=== PATIENT | male | born 1955 | race Caucasian/White ===

== ENCOUNTER 2017-12-24 10:45 | Emergency (ER) | payer OTHER ==
[~2017-12-24] VITALS: Ht 167.6 cm; Wt 97.5 kg
--- OUTSIDE RECORDS SUMMARY | ~2017-12-24 | XMS | Clinical Summary ---
Demographics + + + | Address | [address] | | | [place] [address] | + + + | Home Phone | | + + + | Preferred Language | Unknown | + + + | Marital Status | | + + + | Gnosticist Affiliation | Unknown | + + + | Race | Unknown | + + + | Ethnic Group | Unknown | + + + Author + + + | Author | [facility] | | | and [place] | + + + | Organization | [facility] | | | and [place] | + + + | Address | Unknown | + + + | Phone | Unavailable | + + + Support + + + + + | Name | Relationship | Address | Phone | + + + + + | Ammy Vivar | ECON | [address] | | | | | [place], [place] | | | | | [address] | | + + + + + | Ernesto Vivar | ECON | [address] | | | | | [place] | | | | | [address] | | + + + + + Care Team Providers + +------+ + | Care Facility Maintenance Helper Name | Role | Phone | + +------+ + | Goldy Jiang PA-C PP | Unavailable | + +------+ + Allergies + + + + + + | Active Allergy | Reactions | Severity | Noted | Comments | | | | | Date | | + + + + + + | Hydrocodone | Nausea Only | Low | 02/17/ | | | | | | 14 | | + + + + + + | Lisinopril | | | | Pt does not | | | | | | remember what the | | | | | | reaction was | + + + + + + | Tetracycline Hcl | Nausea Only | Medium | | | + + + + + + Current Medications + + +--------+---------+------+------+-------+ | Prescription | Sig. | Disp. | Refills | Star | End | Statu | | | | | | t | Date | s | | | | | | Date | | | + + +--------+---------+------+------+-------+ | nitroglycerin | One tablet under | | | 07/0 | | Activ | | (NITROSTAT) 0.4 mg | tongue as needed for | | | 5/20 | | e | | SL tablet | chest pain. May | | | 12 | | | | | repeat every 5 | | | | | | | | minutes up to 3 | | | | | | | | times. If no relief | | | | | | | | after 3rd tablet, | | | | | | | | call 911. | | | | | | + + +--------+---------+------+------+-------+ | acetaminophen | 1-2 tablets by mouth | | | 07/0 | | Activ | | (TYLENOL) 500 mg | as needed | | | 5/20 | | e | | tablet | | | | 12 | | | + + +--------+---------+------+------+-------+ | [place]-3 Fatty | Take 1,000 mg by | | | 07/0 | | Activ | | Acids (FISH OIL) | mouth 3 times daily. | | | 5/20 | | e | | 1200 MG CAPS | | | | 12 | | | + + +--------+---------+------+------+-------+ | metoprolol | Take 1 tablet by | 30 | 6 | 06/2 | | Activ | | succinate | mouth every evening. | tablet | | /20 | | e | | (TOPROL-XL) 25 mg 24 | Along with 50 mg, | | | 14 | | | | hr tablet | for total of 75 mg | | | | | | | | daily in the | | | | | | | | evening. | | | | | | + + +--------+---------+------+------+-------+ | | Take 1 tablet by | 30 | 6 | 02/23 | | Activ | | hydrochlorothiazide | mouth Daily. | tablet | | 12/13 | | e | | 25 mg tablet | | | | 14 | | | + + +--------+---------+------+------+-------+ | ezetimibe (ZETIA) | Take 1 tablet by | 30 | 5 | 12/1 | | Activ | | 10 mg tablet | mouth Daily. | tablet | | /20 | | e | | | | | | 15 | | | + + +--------+---------+------+------+-------+ | atorvaSTATin | Take 1 tablet by | 90 | 3 | 01/24 | | Activ | | (LIPITOR) 40 mg | mouth nightly. | tablet | | 12/13 | | e | | tablet | | | | 16 | | | + + +--------+---------+------+------+-------+ | aspirin 81 MG | Take 1 tablet by | 90 | 3 | 01/25 | | Activ | | tablet | mouth Daily. | tablet | | 09/14 | | e | | | | | | 16 | | | + + +--------+---------+------+------+-------+ Active Problems + + + | Problem | Noted Date | + + + | Pacemaker reprogramming/check do not remove | 06/15/2015 | + + + | Pacemaker-St Durga- 02/17/14, SUW | 02/17/2014 | + + + + + | Overview: Formatting of this note may be different from the | | original. MODEL NAME MODEL# SERIAL# DATE IMPLANTED GENERATOR St | | Durga Assurity [id number] 02/17/[address] Durga | | 2087TC/52 [id number]/[id number] 02/17/[address] Durga 2087TC/46 [id number] | | 02/17/14 Indication: Sinoatrial Node Dysfunction - Bradycardia | | | |Indication: Sinoatrial Node Dysfunction - Bradycardia | + + + +---+ | OSTEOPOROSIS | | + +---+ | OTHER ABNORMAL GLUCOSE | | + +---+ | GASTROESOPHAGEAL REFLUX DISEASE | | + +---+ | Hyperlipidemia | | + +---+ | Hypertension | | + +---+ | Myocardial infarction acute (HCC) | | + +---+ | CAD | | + +---+ + + | Overview: Exercise Myoview stress test on 09/26/06 which | | revealed a normal ECG. Normal perfusion imaging study with no | | definite evidence of reversible ischemia. LVEF by SPECT was 59%. | | Echocardiogram on 07/28/07 revealed normal LV size. Mid to distal | | septum anterior wall and apex are akinetic. Overall mild to | | moderate segmental LV dysfunction with LVEF estimated at 40-45%/ | | Left atrial size is mildly dilated. Status post non-Q wave | | myocardial infarction, status post PTCA and stents of the | | proximal left anterior descending on 07/27/2007 at [facility]. | | Persantine Myoview stress test on 03/02/08 revealed a negative ECG. | | Occasional PVC. Exercise tolerance is average for age. Abnormal | | perfusion imaging study with a small size, mild severity fixed | | defect of the anteroseptal region. This suggests only a very | | small area of the myocardial scar of the septal area. A normal LV | | size, wall thickness and motion. Preserved LV systolic function. | | LVEF by SPECT of 57%. Echocardiogram 01/14/14, shows mild left | | atrial dilatation, normal left ventricular size, wall thickness | | and motion, preserved let ventricular systolic function, LVEF is | | 55-60%, grade 1 left ventricular diastolic dysfunction, mild | | mitral valve regurgitation, mild tricuspid valve regurgitation, | | normal right-sided pressure, normal IVC with a normal respiratory | | collapse. | + + + +---+ | HYPOGONADISM | | + +---+ | Tricuspid regurgitation | | + +---+ | MITRAL REGURGITATION, 0 (MILD) | | + +---+ | Sinoatrial node dysfunction - Bradycardia | | + +---+ + + | Overview: Holter Monitor 01/19/14, shows predominant rhythm | | is sinus bradycardia with the heart rate ranging between 34 and | | 103 BPM, average heart rate was 54 BPM during the 45:53 hour | | recording, frequent ventricular ectopies including 6 couplets and | | 110 runs of bigeminy and several runs of trigeminy, very rare | | supraventricular ectopies including 10 couplets and 2 runs of | | paroxysmal atrial tachycardia, longest run was 3 beats at a | | maximum rate of 153 BPM (18:35-1), 992 runs of bradycardia, | | scattered throughout the entire recording, longest run was 1964 | | beats (23:32-1) and the minimum rate was 33 beats per minute | | (23:51-1), three compensatory pauses, patient included his | | activities but reported no symptoms. | + + Family History + + +------+ + | Medical History | Relation | Name | Comments | + + +------+ + | Premature CHD | Father | | | + + +------+ + | Premature CHD | Maternal | | | | | Grandfath | | | | | er | | | + + +------+ + | Premature CHD | Maternal | | | | | Grandmoth | | | | | er | | | + + +------+ + + +------+ + + | Relation | Name | Status | Comments | + +------+ + + | Brother | | Alive | | + +------+ + + | Brother | | Alive | | + +------+ + + | Brother | | Alive | | + +------+ + + | Father | | | | | | | (Age | | | | | 81) | | + +------+ + + | Maternal Grandfather | | | | + +------+ + + | Maternal Grandmother | | | | + +------+ + + | Mother | | | Heart disease | | | | (Age | | | | | 50) | | + +------+ + + | Sister | | Alive | | + +------+ + + | Sister | | Alive | | + +------+ + + | Sister | | Alive | | + +------+ + + | Sister | | Alive | | + +------+ + + Social History + +-------+ +--------+------+ | Tobacco Use | Types | Packs/Day | Years | Date | | | | | Used | | + +-------+ +--------+------+ | Never Smoker | | | | | + +-------+ +--------+------+ + +---+---+---+ | Smokeless Tobacco: | | | | | Never Used | | | | + +---+---+---+ + + +---------+ + | Alcohol Use | Drinks/We | oz/Week | Comments | | | ek | | | + + +---------+ + | No | 0 | 0.0 | | | | Standard | | | | | drinks or | | | | | | | | | | equivalen | | | | | t | | | + + +---------+ + + + + | Sex Assigned at | Date Recorded | | | | + + + | Not on file | | + + + Last Filed Vital Signs + + + + | Vital Sign | Reading | Time Taken | + + + + | Blood Pressure | 116/78 | 02/06/20173 PDT | + + + + | Pulse | 63 | 02/06/2017 1023 PDT | + + + + | Temperature | 35.6 C (96.1 F) | 02/18/2014 0740 PDT | + + + + | Respiratory Rate | 14 | 02/06/2017 1023 PDT | + + + + | Oxygen Saturation | 95% | 02/18/2014 0740 PDT | + + + + | Inhaled Oxygen | - | - | | Concentration | | | + + + + | Weight | 95.7 kg (211 lb) | 02/06/20171022 PDT | + + + + | Height | 170.2 cm (5' 7") | 02/06/20171022 PDT | + + + + | Body Mass Index | 33.05 | 02/06/20171022 PDT | + + + + Plan of Treatment +--------+---------+ + + + | Date | Type | Specialty | Care Team | Description | +--------+---------+ + + + | 02/19/ | Office | | Bhargav Pappas, | | | 2017 | Visit | | MD Ricardo Alvarez | | | | | | [place], | | | | | | [place] [address] | | | | | | [phone] | | | | | | | | +--------+---------+ + + + + + + + + | Health Maintenance | Due Date | Last Done | Comments | + + + + + | Hepatitis C | | | | | Screening | 4 | | | + + + + + | Vaccine: | | | | | Dtap/Tdap/Td (1 - | 3 | | | | Tdap) | | | | + + + + + | Vaccine: | | | | | Pneumococcal 19-64 | 3 | | | | (PPSV23 only) Medium | | | | | Risk (1 of 1 - | | | | | PPSV23) | | | | + + + + + | COLON CANCER | | | | | SCREENING | 4 | | | | (COLONOSCOPY EVERY | | | | | 10 YEARS 50-75) | | | | + + + + + | Vaccine: Influenza | | | | | (Season Ended) | 8 | | | + + + + + Implants + +------+--------+ +--------+--------+--------+ | Implanted | Type | Area | Manufacture | Device | Expira | Model | | | | | r | | tion | / | | | | | | Identi | Date | Serial | | | | | | fier | | / Lot | + +------+--------+ +--------+--------+--------+ | Lead Tendril Pacing Sts 52cm | | Left: | ST DURGA | | 11/23/ | 8TC | | - [id number]: Qty: 1 | | Chest | MEDICAL - | | 2016 | /52 | | on 02/17/2014 by Mian, | | | BRITANY | | | /[id number] | | MD Bhargav | | | | | | 2090 | | | | | | | | /[id number] | | | | | | | | 7061 | + +------+--------+ +--------+--------+--------+ | Lead Tendril Pacing Sts 46cm | | Left: | ST DURGA | | 10/23/ | 2087TC | | - [id number]: Qty: 1 | | Chest | MEDICAL - | | 2016 | /46 | | on 02/17/2014 by Mian, | | | BRITANY | | | /[id number] | | MD Bhargav | | | | | | 2419 | | | | | | | | /[id number] | | | | | | | | 1796 | + +------+--------+ +--------+--------+--------+ | Josef Babb - | | Left: | ST DURGA | | 08/25/ | [id number] | | [id number]: Qty: 1 on | | Chest | MEDICAL - | | 2014 | | | 02/17/2014 by Mian, | | | BRITANY | | | /[id number] | | MD Bhargav | | | | | | 64 | | | | | | | | /[id number] | | | | | | | | 9494 | + +------+--------+ +--------+--------+--------+ Results Not on filefrom Last 3 Months Insurance + +--------+ +--------+-------+---------+ | Payer | Benefi | Subscriber | Type | Phone | Address | | | t Plan | ID | | | | | | / | | | | | | | Group | | | | | + +--------+ +--------+-------+---------+ | [facility] | I[employer] | xxxxxxxxx | Indemn | | | | SERVICE | YELLOW | | ity | | | | | HAWK | | | | | + +--------+ +--------+-------+---------+ + +--------+ +--------+ + + | Guarantor Name | Accoun | Relation to | Date | Phone | Billing Address | | | t Type | Patient | of | | | | | | | | | | + +--------+ +--------+ + + | BROOKE VIVAR | Person | Self | [birth year] | Work: | [address] | | | [place] | | [address] | +- | [place] [address] | | | bjorn | | | [address]: | | | | | | | | | | | | | | [phone] | | | | | | | [address] | | + +--------+ +--------+ + +
--- OUTSIDE RECORDS SUMMARY | ~2017-12-24 | XMS | Clinical Summary ---
Demographics + + + | Address | [address] [place] [address] ROAD | | | [place] [address] | + + + | Home Phone | | + + + | Preferred Language | Unknown | + + + | Marital Status | | + + + | Lutheran Affiliation | NON | + + + | Race | White | + + + | Ethnic Group | Not or | + + + Author + + + | Author | [facility] | + + + | Organization | [facility] | + + + | Address | Unknown | + + + | Phone | Unavailable | + + + Support + + +---------+ + | Name | Relationship | Address | Phone | + + +---------+ + | CHELE CAMARENA | ECON | Unknown | | + + +---------+ + Care Team Providers + +------+ + | Care Power Wheelchair Mechanic Name | Role | Phone | + +------+ + PP | Unavailable | + +------+ + Source Comments [facility] is fully live on both [facility] and [facility] InPatient.[facility] Allergies Not on File Current Medications Not on file Active Problems Not on file Social History + +-------+ +--------+------+ | Tobacco Use | Types | Packs/Day | Years | Date | | | | | Used | | + +-------+ +--------+------+ | Never Assessed | | | | | + +-------+ +--------+------+ + + + | Sex Assigned at | Date Recorded | | | | + + + | Not on file | | + + + Plan of Treatment + + + + + | Health Maintenance | Due Date | Last Done | Comments | + + + + + | INFLUENZA VACCINE | | | | | (FLU SHOT) | 8 | | | + + + + + Results Not on filefrom Last 3 Months"
--- OUTSIDE RECORDS SUMMARY | ~2017-12-24 | XMS | Clinical Summary ---
Demographics + + + | Address | [address] | | | [place] [address] | + + + | Home Phone | | + + + | Preferred Language | Unknown | + + + | Marital Status | | + + + | Restorationism Affiliation | Unknown | + + + | Race | Unknown | + + + | Ethnic Group | Unknown | + + + Author + + + | Author | [facility] | | | and [place] | + + + | Organization | [facility] | | | and [place] | + + + | Address | Unknown | + + + | Phone | Unavailable | + + + Support + + + + + | Name | Relationship | Address | Phone | + + + + + | Ammy Vivar | ECON | [address] | | | | | [place], [place] | | | | | [address] | | + + + + + | Ernesto Vivar | ECON | [address] | | | | | [place] | | | | | [address] | | + + + + + Care Team Providers + +------+ + | Care Hand Bender Name | Role | Phone | + [...] | | | + + +--------+---------+------+------+-------+ | [place]-3 Fatty | Take 1,000 mg by | [...] IMPLANTED GENERATOR St | | Durga Assurity [id number] 02/17/[address] Durga | | 2087TC/52 CNY08/0 02/17/[address] Durga 2087TC/46 [id number] | | 02/17/14 Indication: Sinoatrial Node Dysfunction [...] proximal left anterior descending on 07/27/2007 at [facility]. | | Persantine Myoview stress test [...] [place], | | | | | | [place] [address] | | | | | | [phone] | | | | | | | [...] | 11/23/ | 8TC | | - [id number]: Qty: 1 | | Chest | MEDICAL - | | 2016 | /52 | | on 02/17/2014 by Mian, | | | BRITANY | | | /[id number] | | MD Bhargav | | | | | | 2090 | | | | | | | | /[id number] | | | | | | | | 7061 | + +------+--------+ +--------+--------+--------+ | Lead Tendril Pacing Sts 46cm | | Left: | ST DURGA | | 10/23/ | [id number] | | - [id number]: Qty: 1 | | Chest | MEDICAL - | | 2016 | /46 | | on 02/17/2014 by Mian, | | | BRITANY | | | /[id number] | | MD Bhargav | | | | | | 2419 | | | | | | | | /[id number] | | | | | | | | 1796 | + +------+--------+ +--------+--------+--------+ | Josef Babb - | | Left: | [facility] DURGA | | 08/25/ | [id number] | | [id number]: Qty: 1 on | | Chest | MEDICAL - | | 2014 | | | 02/17/2014 by Mian, | | | BRITANY | | | /[id number] | | MD Bhargav | | | | | | 64 | | | | | | | | /[id number] | | | | | | | [...] | | | + +--------+ +--------+-------+---------+ | [facility] | IHS | xxxxxxxxx | Indemn [...] | Self | [birth year] | Work: | [address] | | | al[address] | | [address] | +- | [place] [address] | | | bjorn | | | [address]: | | | | | | | | | | | | | | [phone] | | | | | | | [address] | | + +--------+ +--------+ + +
--- OUTSIDE RECORDS SUMMARY | ~2017-12-24 | XMS | Clinical Summary ---
Demographics + + + | Address | [address] [place] [address] ROAD | | | [place] [address] | + + + | Home Phone | | + + + | Preferred Language | Unknown | + + + | Marital Status | | + + + | Protestant Affiliation | NON | + + + [...] Team Providers + +------+ + | Care Guitar Maker Hand Name | Role | Phone | + +------+ + PP | Unavailable | + +------+ + Source Comments [facility] is fully live on both [facility] and [facility] InPatient.[facility] Allergies Not on File Current Medications Not [...]
[~2017-12-24 10:45] MED LIST: ACETAMINOPHEN325 M1 PO; ASPIRIN EC325 MG PO; CIPRO500 MG PO; FISH OIL300 MG PO; NITROSTAT0.4 MG SL; PANTOPRAZOLE SO40 MG PO; TOPROL XL25 MG PO; ZETIA10 MG PO; ZOCOR10 MG PO
[2017-12-24] MEDS ORDERED: HYDROCHLOROTHIA25 MG PO (11:22)
[2017-12-24] MEDS ORDERED: LIPITOR40 MG PO (11:22)
--- NOTE | 2017-12-24 20:54 | EKG ---
[facility] [address] [facility] [place] [address] Signed Atrial-paced rhythm with occasional premature ventricular complexes Septal infarct , age undetermined Abnormal ECG No previous ECGs available Confirmed by ARMANI MACHUCA MD ([id number]) on 12/24/2017 8:54:14 PM Electronically Signed By: ARMANI MACHUCA MD 12/24/174 PATIENT NAME: BROOKE CAMARENA SHABNAM Electrocardiogram DATE OF : 53 PHYSICIAN: ARMANI MACHUCA MD REPORT #: [id number] REPORT IS CONFIDENTIAL AND NOT TO BE RELEASED WITHOUT AUTHORIZATION
== END 2017-12-24 12:00 | disposition home or self-care (01) ==
LOC: ED 10:45
DX: S20.212A Contusion of left front wall of thorax, initial encounter (principal); Z88.8 Allergy status to other drugs, medicaments and biological substances; Z88.5 Allergy status to narcotic agent; Z79.899 Other long term (current) drug therapy; Z79.82 Long term (current) use of aspirin; W22.8XXA Striking against or struck by other objects, initial encounter
CPT/HCPCS: 71046; 93005; 93010; 99283

== ENCOUNTER 2020-11-13 10:25 | Emergency (ER) | payer OTHER ==
[~2020-11-13] VITALS: Ht 167.6 cm; Wt 96.2 kg
[~2020-11-13 10:25] MED LIST changes: +HYDROCHLOROTHIA25 MG PO; +LIPITOR40 MG PO
[2020-11-13] MEDS ORDERED: GLUCOPHAGE1000 MG PO (10:38)
[2020-11-13] MEDS ORDERED: GLIPIZIDE ER2.5 MG PO (10:39)
[2020-11-13] MEDS ORDERED: COZAAR25 MG PO (10:39)
[2020-11-13] MEDS ORDERED: ADULT LOW DOSE81 MG PO (10:41)
[2020-11-13] MEDS ORDERED: EZETIMIBE10 MG PO (10:42)
--- NOTE | 2020-11-13 12:36 | EKG ---
[facility] [address] [facility] [place] [address] Signed Atrial-paced rhythm Septal infarct (cited on or before 24-DEC-2017) Abnormal ECG When compared with ECG of 24-DEC-2017 11:20, premature ventricular complexes are no longer present Confirmed by FRANCISCO MARTE MD ([id number]) on 11/13/2020 12:36:36 PM Electronically Signed By: FRANCISCO MARTE MD 11/13/20 1236 PATIENT NAME: BROOKE CAMARENA Electrocardiogram DATE OF : 53 PHYSICIAN: FRANCISCO MARTE MD REPORT #: [id number] REPORT IS CONFIDENTIAL AND NOT TO BE RELEASED WITHOUT AUTHORIZATION
[2020-11-13] MEDS ORDERED: NEXIUM 24HR20 M1 PO (14:15)
== END 2020-11-13 14:36 | disposition home or self-care (01) ==
LOC: ED 10:25
DX: R07.2 Precordial pain (principal); R10.13 Epigastric pain; I25.2 Old myocardial infarction; R73.03 Prediabetes; Z88.5 Allergy status to narcotic agent; Z88.1 Allergy status to other antibiotic agents; Z79.899 Other long term (current) drug therapy; Z79.84 Long term (current) use of oral hypoglycemic drugs; Z79.82 Long term (current) use of aspirin
CPT/HCPCS: 71045; 80048; 84484; 85025; 93005; 93010; 96374; 99285-25; C9113

== ENCOUNTER 2021-03-21 08:14 | Emergency (ER) | payer MEDICARE, OTHER ==
[~2021-03-21] VITALS: Ht 167.6 cm; Wt 96.2 kg
[~2021-03-21 08:14] MED LIST changes: +ADULT LOW DOSE81 MG PO; +COZAAR25 MG PO; +EZETIMIBE10 MG PO; +GLIPIZIDE ER2.5 MG PO; +GLUCOPHAGE1000 MG PO; +NEXIUM 24HR20 M1 PO
== END 2021-03-21 09:32 | disposition home or self-care (01) ==
LOC: ED 08:14
DX: S43.402A Unspecified sprain of left shoulder joint, initial encounter (principal); W01.10XA Fall on same level from slipping, tripping and stumbling with subsequent striking against unspecified object, initial encounter; I25.2 Old myocardial infarction; Z88.1 Allergy status to other antibiotic agents; Z88.5 Allergy status to narcotic agent; Z79.899 Other long term (current) drug therapy; Z79.84 Long term (current) use of oral hypoglycemic drugs; Z79.82 Long term (current) use of aspirin
CPT/HCPCS: 73030; 73060; 99283-25

== ENCOUNTER 2021-12-20 14:13 | Emergency (ER) | payer MEDICARE, OTHER ==
[~2021-12-20] VITALS: Ht 167.6 cm; Wt 96.2 kg
== END 2021-12-20 15:30 | disposition home or self-care (01) ==
LOC: ED 14:13
DX: M79.601 Pain in right arm (principal); R73.03 Prediabetes; I25.2 Old myocardial infarction; Z79.899 Other long term (current) drug therapy; Z79.84 Long term (current) use of oral hypoglycemic drugs; Z79.82 Long term (current) use of aspirin; Z88.8 Allergy status to other drugs, medicaments and biological substances; Z88.5 Allergy status to narcotic agent
CPT/HCPCS: 99283; A9270